=== PATIENT | female | born 1980 | race Caucasian/White ===

== ENCOUNTER 2018-06-02 11:52 | Emergency (ER) | payer BC, OTHER ==
[~2018-06-02] VITALS: Ht 172.7 cm; Wt 72.6 kg
[2018-06-02 12:32] VITALS: BP 103/65
--- NOTE | 2018-06-02 12:38 | PHYS DOC ---
Adult General Chief Complaint Chief Complaint: ANKLE PROBLEM HPI HPI 38-year-old female presents with right ankle pain. The patient was jumping in the air home yesterday and when she came down on her right ankle it buckled on her and she immediately went to the ground. She has not been able to stand on the ankle after that. She is using crutches that she had at home. The pain was 10 out of 10. The patient has taken a [place] 10/. She has also tried ice it. The pain is still about an 8 out of 10. She denies any previous injuries to this ankle. She has not had surgery on this foot. She denies any other injuries or complaints. Review of Systems Review of Systems Constitutional: Denies fever or chills [] Eyes: Denies change in visual acuity, redness, or eye pain [] HENT: Denies nasal congestion or sore throat [] Respiratory: Denies cough or shortness of breath [] Cardiovascular: No additional information not addressed in HPI [] GI: Denies abdominal pain, nausea, vomiting, bloody stools or diarrhea [] : Denies dysuria or hematuria [] Musculoskeletal: Denies back pain or joint pain [] Integument: Denies rash or skin lesions [] Neurologic: Denies headache, focal weakness or sensory changes [] Endocrine: Denies polyuria or polydipsia [] All other systems were reviewed and found to be within normal limits, except as documented in this note. Allergies Allergies Allergies Coded Allergies Type Severity Reaction Last Updated Verified adhesive tape Allergy Unknown 06/02/18 Yes azithromycin Allergy Unknown 06/02/18 Yes ciprofloxacin Allergy Unknown 06/02/18 Yes latex Allergy Unknown 06/02/18 Yes morphine Allergy Unknown 06/02/18 Yes Physical Exam Physical Exam Constitutional: Well developed, well nourished, no acute distress, non-toxic appearance. [] HENT: Normocephalic, atraumatic, bilateral external ears normal, oropharynx moist, no oral exudates, nose normal. [] Eyes: PERRLA, EOMI, conjunctiva normal, no discharge. [] Neck: Normal range of motion, no tenderness, supple, no stridor. [] Cardiovascular:Heart rate regular rhythm, no murmur [] Lungs & Thorax: Bilateral breath sounds clear to auscultation [] Abdomen: Bowel sounds normal, soft, no tenderness, no masses, no pulsatile masses. [] Skin: Warm, dry, no erythema, no rash. [] Back: No tenderness, no CVA tenderness. [] Extremities: No tenderness, no cyanosis, no clubbing, ROM intact, no edema. [] Neurologic: Alert and oriented X 3, normal motor function, normal sensory function, no focal deficits noted. [] Psychologic: Affect normal, judgement normal, mood normal. [] EKG EKG [] Radiology/Procedures Radiology/Procedures [] Impressions: Exam performed: Right ankle 3 views. Indication: Right ankle pain and swelling status post rolling foot. Date of Service: 06/02/2018. Comparison: None available Three views right ankle findings: Normal alignment of the ankle mortise is preserved. There is no acute fracture or dislocation. There is extensive soft tissue swelling, no definite foreign body. Impression: Diffuse soft tissue swelling. No acute bony abnormality seen. Electronically signed by: Sherice Rahman MD (06/02/2018 12:46 PM) [facility] DICTATED AND SIGNED BY: SHERICE RAHMAN MD DATE: 06/02/18 1246 CC: TONY ZAVALA DO; ELDA,STAFF ~ Course & Med Decision Making Course & Med Decision Making Pertinent Labs and Imaging studies reviewed. (See chart for details) Patient's x-rays negative for fracture. This appears to be a severe sprain. We' ll place the patient in an air splint and have her on crutches. She will follow up with her PCP as needed. She is stable for discharge at this time. I will discharge her with Zofran and [place] 5/325. [] Dragon Disclaimer Dragon Disclaimer This electronic medical record was generated, in whole or in part, using a voice recognition dictation system. Departure Departure: Impression: Primary Impression: Severe sprain of right ankle Disposition: 01 HOME, SELF-CARE Condition: STABLE Referrals: NON,STAFF (PCP) Patient Instructions: Ankle Sprain, [id number] Scripts Ondansetron (ONDANSETRON ODT) 4 Mg Tab.rapdis 1 TAB PO PRN Q6-8HRS PRN for VOMITING, #16 TAB Prov: TONY ZAVALA DO 06/02/18 Hydrocodone Bit/Acetaminophen (NORCO 5-325 TABLET) 1 Each Tablet 1 TAB PO PRN Q6HRS PRN for PAIN, #14 TAB 0 Refills Prov: TONY ZAVALA DO 06/02/18 Problem Qualifiers Primary Impression: Severe sprain of right ankle Encounter type: initial encounter Qualified Codes: S93.401A - Sprain of unspecified ligament of right ankle, initial encounter TONY ZAVALA DO Jun 02, 2018 12:38
--- NOTE | 2018-06-02 12:49 | RAD ---
Exam performed: Right ankle 3 views. Indication: Right ankle pain and swelling status post rolling foot. Date of Service: 06/02/2018. Comparison: None available Three views right ankle findings: Normal alignment of the ankle mortise is preserved. There is no acute fracture or dislocation. There is extensive soft tissue swelling, no definite foreign body. Impression: Diffuse soft tissue swelling. No acute bony abnormality seen. Electronically signed by: Sherice Rahman MD (06/02/2018 12:46 PM) [facility]
[2018-06-02] MEDS ORDERED: HYDROcodone/APAP 5/325MG 1 TAB TABLET ONE (13:36)
[2018-06-02] MEDS ORDERED: ONDANSETRON ODT 4 MG TAB.RAPDIS ONE (13:36)
[2018-06-02] MEDS ORDERED: HYDR-3165 PO (13:38)
[2018-06-02] MEDS ORDERED: ONDA4TAB12 PO (13:38)
[2018-06-02] MEDS ORDERED: HYDROcodone/APAP 5/325MG 1 TAB TABLET PO ONE (13:45)
[2018-06-02] MEDS ORDERED: ONDANSETRON PF 4 MG/2 ML VIAL. IV ONE (13:45)
[2018-06-02] MEDS ORDERED: ONDANSETRON ODT 4 MG TAB.RAPDIS PO ONE (19:00)
== END 2018-06-02 13:51 | disposition home or self-care (01) ==
LOC: ER 11:52
DX: S93.401A Sprain of unspecified ligament of right ankle, initial encounter (principal); Z88.1 Allergy status to other antibiotic agents; Z88.8 Allergy status to other drugs, medicaments and biological substances; Z88.5 Allergy status to narcotic agent; Z91.040 Latex allergy status; X50.9XXA Other and unspecified overexertion or strenuous movements or postures, initial encounter; Y93.39 Activity, other involving climbing, rappelling and jumping off; Y92.89 Other specified places as the place of occurrence of the external cause; Y99.8 Other external cause status
CPT/HCPCS: 29515; 73610; 99284; Q0162